=== PATIENT | female | born 1940 | race Caucasian/White ===

== ENCOUNTER 2017-06-17 13:35 | Inpatient (IN) | payer MEDICARE ==
[2017-06-17] VITALS (8 sets, daily range): BP systolic 124–139; BP diastolic 56–83
[2017-06-17] MEDS ORDERED: NITROGLYCERIN 5 MG/ML 10 ML VIAL IV ONE (14:09)
[2017-06-17] MEDS ORDERED: SODIUM BICARB 50MEQ 50ML VIAL ONE (14:09)
[2017-06-17] MEDS ORDERED: LIDOCAINE HCL 2% 20ML ONE (14:09)
[2017-06-17] MEDS ORDERED: ISOVUE-370 50ML VIAL IV ONE (14:09)
[2017-06-17] MEDS ORDERED: HEPARIN SODIUM 1000UNIT/ML 10ML VIAL ONE (14:09)
[2017-06-17] MEDS ORDERED: IOPAMIDOL-370 100 ML VIAL IV ONE (14:09)
[2017-06-17] MEDS ORDERED: DIGOXIN 250 MCG/ML 2ML AMP IV SCH (15:00)
[2017-06-17] MEDS ORDERED: DIGOXIN 125 MCG TABLET PO ONE (17:00)
[2017-06-17] MEDS ORDERED: DIGOXIN 250 MCG/ML 2ML AMP ONE ×4 (17:07→20:18)
[2017-06-17] MEDS: PHARMACY COMMUNICATION MISC SCH ×2 (17:11→20:27)
[2017-06-17] MEDS ORDERED: TIOT4MIS3 IH (18:18)
[2017-06-17] MEDS ORDERED: ROFL500T PO (18:18)
[2017-06-17] MEDS ORDERED: SIMV40TA5 PO (18:18)
[2017-06-17] MEDS ORDERED: AMLO5TAB2 PO (18:18)
[2017-06-17] MEDS ORDERED: MONT10TA24 PO (18:18)
[2017-06-17] MEDS ORDERED: RIVA20TA PO (18:18)
[2017-06-17] MEDS ORDERED: LISI-613 PO (18:18)
[2017-06-17] MEDS ORDERED: METO50TA18 PO (18:18)
[2017-06-17] MEDS ORDERED: MULT-1192 PO (18:18)
[2017-06-17] MEDS ORDERED: CALC-1062 PO (18:18)
[2017-06-17] MEDS ORDERED: ALBU2.5V2 IH (18:18)
[2017-06-17] MEDS ORDERED: IPRATROPIUM/ALBUTEROL SULFATE 3 ML SOLUTION IH PRN (18:45)
[2017-06-17] MEDS ORDERED: ATORVASTATIN CALCIUM 20 MG TABLET PO SCH (21:00)
[2017-06-17] MEDS ORDERED: METOPROLOL TARTRATE 50 MG TAB PO SCH (21:00)
[2017-06-18] MEDS: ALBUTEROL SULFATE 0.083% 2.5 MG/3 ML INH IH SCH ×3 (00:56→11:55)
[2017-06-18 03:38] VITALS: BP 125/79
[2017-06-18 07:00] VITALS: BP 122/62
[2017-06-18] MEDS ORDERED: PHARMACY COMMUNICATION MISC SCH (09:00)
[2017-06-18] MEDS ORDERED: MONTELUKAST SODIUM 10 MG TAB PO SCH (09:00)
[2017-06-18] MEDS ORDERED: DIGOXIN 125 MCG TABLET PO SCH (09:00)
[2017-06-18] MEDS ORDERED: LISINOPRIL 20 MG TABLET PO SCH (09:00)
[2017-06-18] MEDS ORDERED: DILTIAZEM HCL 120 MG CAP.SR.24H PO SCH (09:00)
[2017-06-18] MEDS ORDERED: RIVAROXABAN 20 MG TABLET PO SCH ×2 (09:00)
[2017-06-18] MEDS ORDERED: AMLODIPINE BESYLATE 5 MG TAB PO SCH (09:00)
[2017-06-18 11:00] VITALS: BP 90/44
[2017-06-18] MEDS ORDERED: DIGO0.12 PO (13:33)
== END 2017-06-18 14:05 | disposition home or self-care (01) | DRG 287 ==
LOC: 2CH 14:03
PROVIDERS: ADMIT Family Medicine; ATTEND Family Medicine
PROC: 4A023N7 Measurement of Cardiac Sampling and Pressure, Left Heart, Percutaneous Approach (ICD-10-PCS; principal; 2017-06-17)
PROC: B2111ZZ Fluoroscopy of Multiple Coronary Arteries using Low Osmolar Contrast (ICD-10-PCS; 2017-06-17)
PROC: B2151ZZ Fluoroscopy of Left Heart using Low Osmolar Contrast (ICD-10-PCS; 2017-06-17)
DX: R07.89 Other chest pain (principal); J44.1 Chronic obstructive pulmonary disease with (acute) exacerbation; I48.0 Paroxysmal atrial fibrillation; E78.5 Hyperlipidemia, unspecified; I10 Essential (primary) hypertension; Z79.01 Long term (current) use of anticoagulants
CPT/HCPCS: 93458; 94640; 94664; C1760; C1894; J1160; J1644; J3490; Q9967

== ENCOUNTER → 2020-12-09 | Outpatient (CLI) | payer MEDICARE ==
[~2020-12-09] MED LIST: ALBU2.5V2 IH; AMLO-257 PO; CALC-1062 PO; DIGO0.12 PO; LISI20TA24 PO; MONT10TA32 PO; MULT-1192 PO; RIVA20TA PO; ROFL500T PO; SIMV-46 PO; TIOT4MIS3 IH
== END | disposition home or self-care (01) ==
LOC: SHCH 08:44
PROVIDERS: ATTEND Internal Medicine Cardiovascular Disease
DX: I34.0 Nonrheumatic mitral (valve) insufficiency (principal); I48.0 Paroxysmal atrial fibrillation
CPT/HCPCS: 93306; 93356